=== PATIENT | female | born 1965 | race Asian ===

== ENCOUNTER 2018-09-21 14:25 | Inpatient (IN) | END 2018-09-23 15:10 | disposition home or self-care (01) | DRG 581 ==

== ENCOUNTER 2019-03-09 11:16 | Emergency (ER) | payer OTHER ==
[~2019-03-09] VITALS: Ht 154.9 cm; Wt 57.0 kg
[2019-03-09 11:21] VITALS: Ht 154.9 cm; Wt 57.0 kg
[2019-03-09] MEDS ORDERED: SOD CHLORIDE 0.9% 1,000 ML IV STA ×2 (15:28→17:59)
[2019-03-09] MEDS ORDERED: ALBUTEROL 0.083% (NEB) 2.5 MG/3 ML AMP HHN STA (15:28)
[2019-03-09] MEDS ORDERED: CEFTRIAXONE 1 GM/50 ML (PMX) 50 ML IVPB ONE (17:00)
[2019-03-09] MEDS ORDERED: FER325 PO (17:26)
[2019-03-09] MEDS ORDERED: ASC500 PO (17:26)
[2019-03-09] MEDS ORDERED: CALC600T24 PO (17:27)
[2019-03-09] MEDS ORDERED: VIT1TABL46 PO (17:27)
[2019-03-09] MEDS ORDERED: CHOL500010 PO (17:28)
[2019-03-09] MEDS ORDERED: [UNRECOGNIZED DRUG - CODE] MC (17:29)
[2019-03-09] MEDS ORDERED: COCO1000 PO (17:29)
[2019-03-09] MEDS ORDERED: CRAN400C PO (17:30)
[2019-03-09] MEDS ORDERED: ONDANSETRON 4 MG INJ IV STA (19:13)
[2019-03-09] MEDS ORDERED: morphine 2 MG INJ IV STA (19:13)
--- NOTE | 2019-03-09 19:13 | ERD ---
ER Documentation Chief Complaint Chief Complaint pt is self with c/o cough, sore throat, going through Radiation for CA HPI This is a 53-year-old female with a history of breast cancer he is completed chemo recently and is finished with that but she still getting radiation. She saw her radiation oncologist this morning and was sent here from him for evaluation. he wanted the patient to get a dose of antibiotics for her sore thr oat. The patient is complaining of a sharp scratchy sore throat worse on the left side than the right with a dry cough for the past 2 days. She has no fever no shortness of breath no chest pain no headache no rash no GI symptoms or neurological complaints ROS All systems reviewed and are negative except as per history of present illness. Medications Home Meds Reported Medications Cranberry (Cranberry) Unknown Strength Capsule, 1 CAP PO DAILY, CAP 03/09/19 Coconut Oil (COCONUT OIL) 1,000 Mg Capsule, 1000 MG PO DAILY, CAP 03/09/19 Cholecalciferol (Vitamin D3) 5,000 Unit Tablet, 5000 UNIT PO DAILY, TAB 03/09/19 Calcium Carbonate* (Calcium Carbonate*) 600 MG Ca Tab, 600 MG PO DAILY, TAB 03/09/19 Vitamin B Complex* (Vitamin B Complex*) 1 Each Tablet, 1 TAB PO DAILY, TAB 03/09/19 Ascorbic Acid (Vitamin C) 500 Mg Tab, 1000 MG PO DAILY, TAB 03/09/19 Ferrous Sulfate* (Ferrous Sulfate*) 325 Mg Tabec, 325 MG PO DAILY, TAB 03/09/19 Discontinued Reported Medications Coconut Oil (Coconut Oil) 100 Gm Oil, 100 GM MC 03/09/19 Allergies Allergies: Coded Allergies: No Known Allergy (Unverified , 03/09/19) PMhx/Soc History of Surgery: Yes (BTL, apendectomy, L breast mastectomy) Anesthesia Reaction: No Hx Neurological Disorder: No Hx Respiratory Disorders: No Hx Cardiac Disorders: Yes (mitral valve prolapse) Hx Psychiatric Problems: No Hx Miscellaneous Medical Probl: Yes (L Breast CA) Hx Alcohol Use: No Hx Substance Use: No Hx Tobacco Use: No Smoking Status: Never smoker FmHx Family History: No coronary disease Physical Exam Vitals Vital Signs Date Temp Pulse Resp B/P (MAP) Pulse Ox O2 O2 Flow FiO2 Time Delivery Rate 03/09/19 99.2 106 21 106/74 99 Room Air 18:41 (85) 03/09/19 104 24 105/87 100 Room Air 18:12 (93) 03/09/19 99.1 107 22 131/71 100 Room Air 17:28 (91) 03/09/19 98.1 116 24 131/84 100 Room Air 16:35 (100) 03/09/19 84 20 96 21 15:55 03/09/19 98.3 60 18 148/67 97 11:21 (94) Physical Exam Const: Well-developed, well-nourished Head: Atraumatic, normocephalic Eyes: Normal Conjunctiva, PERRLA, EOMI, normal sclera, no nystagmus ENT: Normal External Ears, Nose and Mouth, moist mucus membranes, left tonsillar pillar erythema no exudate. Neck: Full range of motion. No meningismus, no lymphadenopathy. Resp: Clear to auscultation bilaterally, no wheezing, rhonchi, rales Cardio: Regular rate and rhythm, no murmurs, S1 S2 present Abd: Soft, non tender x 4, non distended. Normal bowel sounds, no guarding or rebound, no pulsitile abdominal masses or bruits Skin: No petechiae or rashes, no ecchymosis , no maculopapular rash Back: No midline or flank tenderness Ext: No cyanosis, or edema, FROM x 4, normal inspection, neurovascularly intact x 4 Neur: Awake and alert, STR 5/5 x 4, sensation intact x 4, no focal findings, cerebellum intact Psych: Normal Mood and Affect Result Diagram: 03/09/19 1541 03/09/19 1541 Results 24 hrs Laboratory Tests Test 03/09/19 15:41 03/09/19 15:51 White Blood Count 11.2 10^3/ul Red Blood Count 4.29 10^6/ul Hemoglobin 12.3 g/dl Hematocrit 38.5 % Mean Corpuscular Volume 89.7 fl Mean Corpuscular Hemoglobin 28.7 pg Mean Corpuscular Hemoglobin Concent 31.9 g/dl Red Cell Distribution Width 16.5 % Platelet Count 173 10^3/UL Mean Platelet Volume 10.1 fl Immature Granulocytes % 0.400 % Neutrophils % 93.2 % Lymphocytes % 3.1 % Monocytes % 3.0 % Eosinophils % 0.2 % Basophils % 0.1 % Nucleated Red Blood Cells % 0.0 /100WBC Immature Granulocytes # 0.040 10^3/ul Neutrophils # 10.5 10^3/ul Lymphocytes # 0.4 10^3/ul Monocytes # 0.3 10^3/ul Eosinophils # 0.0 10^3/ul Basophils # 0.0 10^3/ul Nucleated Red Blood Cells # 0.0 10^3/ul Sodium Level 144 mmol/L Potassium Level 4.2 mmol/L Chloride Level 102 mmol/L Carbon Dioxide Level 31 mmol/L Anion Gap 11 Blood Urea Nitrogen 9 mg/dl Creatinine 0.54 mg/dl Est Glomerular Filtrat Rate mL/min > 60 mL/min Glucose Level 126 mg/dl Calcium Level 10.5 mg/dl Total Bilirubin 0.5 mg/dl Direct Bilirubin 0.00 mg/dl Indirect Bilirubin 0.5 mg/dl Aspartate Amino Transf (AST/SGOT) 50 IU/L Alanine Aminotransferase (ALT/SGPT) 32 IU/L Alkaline Phosphatase 129 IU/L Total Protein 8.5 g/dl Albumin 4.6 g/dl Globulin 3.90 g/dl Albumin/Globulin Ratio 1.17 POC Venous Lactate 1.8 mmol/L Current Medications Medications Dose Sig/Ursula Start Time Status Last (Trade) Ordered Route PRN Stop Time Admin Dose Reason Admin Sodium 1,000 ml @ Q1H STAT 03/09/19 DC 03/09/19 Chloride 1,000 mls/hr IV 15:28 03/09/19 16:05 16:27 Albuterol 5 mg ONCE STAT 03/09/19 DC 03/09/19 (Proventil HHN 15:28 03/09/19 15:52 0.083% (Neb)) 15:37 Ceftriaxone 50 ml @ ONCE ONCE 03/09/19 DC 03/09/19 Sodium 100 mls/hr IVPB 17:00 03/09/19 17:38 17:29 Sodium 1,000 ml @ Q1H STAT 03/09/19 DC 03/09/19 Chloride 1,000 mls/hr IV 17:59 03/09/19 18:10 18:58 Procedures/MDM Patient: BECKIE TIMMONS : 1965 Age: 53 Sex: F MR #: [id number] DOS: 03/09/19 1528 Ordering MD: EDWIN BERNSTEIN DO Location: E/R Room/Bed: PROCEDURE: XR Chest. CLINICAL INDICATION: Dyspnea TECHNIQUE: Single frontal chest x-ray. COMPARISON: CHEST 09/21/2018 FINDINGS: No acute infiltrate, pleural effusion or pneumothorax is identified. Cardiomediastinal silhouette is within normal limits. Status post left mastectomy. The osseous structures are unremarkable. IMPRESSION: 1. No evidence of acute cardiopulmonary process. RPTAT: AAQQ .Tariq Hope MD, MD Date Time Electronically viewed and signed by .Tariq Hope MD, MD on 03/09/2019 16:30 .R/ CC: EDWIN BERNSTEIN DO [id number] Patient's labs are unremarkable. She got a dose of Rocephin here. Will discharge home with Z-Buck and some pain medication. Told her warning signs for which to return Patient feels much better at this time, and vital signs are normal, symptoms have improved. I did give strict instructions to return to the ED if symptoms continue or worsen, patient will otherwise follow-up with primary care physician. Patient understood instructions and agreed to plan. Disclaimer: Inadvertent spelling and grammatical errors are likely due to EHR/dictation software use and do not reflect on the overall quality of patient care. Also, please note that the electronic time recorded on this note does not necessarily reflect the actual time of the patient encounter. Departure Diagnosis: Primary Impression: Pharyngitis Pharyngitis/tonsillitis etiology: unspecified etiology Qualified Codes: J02.9 - Acute pharyngitis, unspecified Additional Impression: Cough Condition: Stable EDWIN BERNSTEIN DO March 09, 2019 19:13
[2019-03-09] MEDS ORDERED: HYDR-4011 PO (19:15)
[2019-03-09] MEDS ORDERED: AZIT250T PO (19:15)
[2019-03-09 19:44] VITALS: BP 106/56; PULSE 97; RESP 21
== END 2019-03-09 19:45 | disposition home or self-care (01) ==
LOC: E/R 11:16
DX: R05 Cough (principal); J02.9 Acute pharyngitis, unspecified; Z85.3 Personal history of malignant neoplasm of breast
CPT/HCPCS: 71045; 80053; 83605; 85025; 87040; 94664; 96361; 96365; 96375; J0696; J2270; J2405; J7030; Z7502; Z7610